=== PATIENT | female | born 1965 | race African-American/Black ===

== ENCOUNTER 2017-11-21 23:59 | Emergency (ER) | payer SELFPAY ==
[~2017-11-21] VITALS: Ht 162.6 cm; Wt 63.5 kg
[2017-11-22 00:02] VITALS: BP 144/65
--- NOTE | 2017-11-22 00:05 | NUR ---
52 Y/O F BIB [facility] FOR ETOH/TC/ PREBOOK MEDICAL CLEARANCE. MED HX SCIATICA, AND ASTHMA.ER MADE AWARE.
--- NOTE | 2017-11-22 00:14 | NUR ---
SHANKAR PEREZ AT BEDSIDE EVALUATING PT.
[2017-11-22 00:24] VITALS: BP 144/65
--- NOTE | 2017-11-22 00:24 | NUR ---
Patient discharged with v/s stable. Written and verbal after care instructions given and explained. Patient verbalized understanding. Police with in custody. All questions addressed prior to discharge. Advised to follow up with PMD.
== END 2017-11-22 00:24 ==
LOC: MED 23:59
DX: Z02.89 Encounter for other administrative examinations (principal)
CPT/HCPCS: 99283